=== PATIENT | female | born 1985 ===

== ENCOUNTER 2024-08-24 17:14 | Emergency (ER) | payer OTHER, SELFPAY ==
[2024-08-24 17:26] VITALS: BP 132/92
--- NOTE | 2024-08-24 19:50 | ED.SKININJ ---
HPI-Injury
General
Chief Complaint: Bite
Source: patient
Exam Limitations: none
Time Seen by Provider: 08/24/24 19:28
Nursing documentation reviewed up to this point in time: agreed with
History of Present Illness-Injury
Initial Injury comments:
This a pleasant 38-year-old female that presents after a dog bite. Earlier this evening she was hiking at [facility] and was bit by an unknown dog. She states that the dog came up to her just bit to her left forearm. She reports that
the dog was unknown to her. She met the owners but did not ask if the dog was vaccinated. She states that she did not get information about the dog or the owners. She is requesting tetanus and rabies shots. She denies any other symptoms.
Phy Exam
General Physical Exam
General Presentation: well appearing and no apparent distress
General Skin: warm and dry
General Habitus: normal
General Mental: alert
General Hydration: appears well hydrated
ENT Exam
ENT Exam: EOMI, pharynx normal, neck supple and normocephalic
Eye Exam
Eye Exam: PERRL, cornea clear and conjunctiva normal
Neurological Exam
Neurological Exam: alert, oriented x3, no motor deficits and speech normal
Musculoskeletal Exam
Musculoskeletal Exam: full ROM and no edema
Skin Exam
Skin Exam: normal color, warm/dry, no rash, no petechia and other (Small abrasion on the left forearm where patient states that she was bit by the canine.)
Psychiatric Exam
Psychiatric Exam: normal mood/affect
Course
Orders/Labs/Results
Orders:
Orders
08/24/24 19:34
Tetanus/Diphth/Acelpertussis [Adacel] 0.5 ml IM .ONCE ONE
08/24/24 20:00
Rabies Vaccine (Pcec)/Pf [Rabavert Rabies Vacc W-Diluent] 2.5 unit IM .ONCE ONE
08/24/24 20:15
Rabies Immune Globulin/Pf [HyperRAB] 1,264 unit IM ONCE ONE
Vital Signs
Initial and Last Documented VS:
Initial Vital Signs
Temp Pulse Resp BP Pulse Ox
97.7 F 101 16 132/92 100
08/24/24 17:26 08/24/24 17:26 08/24/24 17:26 08/24/24 17:26 08/24/24 17:26
Last Documented Vital Signs
Temp Pulse Resp BP Pulse Ox
97.7 F 101 16 132/92 100
08/24/24 17:26 08/24/24 17:26 08/24/24 17:26 08/24/24 17:26 08/24/24 17:26
*Critical Care Note
Total Time (30-74mins, 75-104mins- exclusive of procedures): Not Applicable
Update Note
Update Note:
Focused physical exam left arm shows a small abrasion consistent with a dog bite. There is no overt laceration. Patient is very insistent upon rabies treatment.
ED Attending Note
-
Portions of this chart may have been created with voice recognition software.� Occasional wrong word or��sound alike� substitutions may have occurred due to the inherent limitations of voice recognition software.
Discharge Plan
Departure
Patient Disposition: Home (Routine Discharge)
Date of Disposition: 08/24/24
Time of Disposition: 21:12
Patient with high blood pressure during this ER visit?: Yes
Condition: Good
Discharge Problem:
Dog bite, Encounter for prophylactic administration of rabies immune globulin
Instructions: Animal Bites (DC), Wound Care (DC), BLOOD PRESSURE, Rabies
Prescriptions:
New
RabAvert (PF) 2.5 unit suspension for reconstitution
1 ml IM ONCE Qty: 3 0RF
Rx Instructions:
Give 1 ml IM on 08/27, 08/31 and 09/07
Referrals:
Malu Waldron MD [Family Provider] -
Stand Alone Forms: Rabies Vaccine Post Exp Dosing
Activity Restrictions/Additional Instructions:
Please call the outpatient infusion center to schedule follow up appointments.
It was a pleasure meeting you and taking part in your care. We hope for your continued healing and wellness.
Please read discharge instructions in their entirety. However, they are for general education and may not describe your exact diagnosis at discharge. Information on your ER visit and medical conditions were discussed with you along with appropriate
follow up information...
If indicated, please take your medications as instructed and indicated on discharge paperwork.
Please schedule a follow up appointment as directed. Call to schedule an appointment
Please return to the emergency department with ANY change in, persisting, or worsening of symptoms. If any of your symptoms do not improve, or persist, or become more severe within 6-12 hours, please return to the emergency department for further
care.
Please return to the emergency department if you develop a headache, neck pain/stiffness, fever greater than 100.4F, chest pain, shortness of breath, persistent nausea, vomiting, slurred speech, difficulty walking, numbness/tingling, weakness, signs
of infection or any other symptoms that are worrisome to you.
If you have any questions or concerns please do not hesitate to call the Hospital at or E-mail me directly at [email or web address]
Interventions
Interventions:
*Risk Screen - Suicide Last Done: 08/24/24 17:26
*General Assessment Last Done: 08/24/24 17:26
*Neglect/Abuse Screening Last Done: 08/24/24 17:26
*Nursing Disposition Last Done: 08/24/24 21:40
ED-Skin Assessment Last Done: 08/24/24 19:18
Discharge Date and Time
Discharge Date/Time: 08/24/24 21:40
Print Language: DANISH
[2024-08-24] MEDS: HyperRAB 1264 UNIT IM (20:32)
[2024-08-24] MEDS: RABAVERT RABIES VACC W-DILUENT 2.5 UNIT IM (20:33)
[2024-08-24] MEDS: ADACEL 0.5 ML IM (20:35)
== END 2024-08-24 21:40 | disposition home or self-care (01) ==
LOC: EMR 17:14
PROVIDERS: EMERGENCY PHYSICIAN Student in an Organized Health Care Education/Training Program; FAMILY PHYSICIAN Family Medicine
DX: S50.812A Abrasion of left forearm, initial encounter (principal); W54.0XXA Bitten by dog, initial encounter; Y93.01 Activity, walking, marching and hiking; Y92.830 Public park as the place of occurrence of the external cause; Z20.3 Contact with and (suspected) exposure to rabies; Z29.14 Encounter for prophylactic rabies immune globulin; R03.0 Elevated blood-pressure reading, without diagnosis of hypertension
CPT/HCPCS: 99284; 90471; 96372; 90375; 90675; 90715

== ENCOUNTER 2024-08-27 15:09 | Outpatient (RCR) | payer OTHER, SELFPAY ==
[2024-08-27 15:15] VITALS: BP 145/74
[2024-08-27] MEDS: RABAVERT RABIES VACC W-DILUENT 2.5 UNIT IM (15:31)
== END 2024-08-28 09:40 | disposition home or self-care (01) ==
LOC: OID 15:09
PROVIDERS: ATTENDING PHYSICIAN Registered Nurse; FAMILY PHYSICIAN Family Medicine
DX: Z20.3 Contact with and (suspected) exposure to rabies (principal); Z23 Encounter for immunization
CPT/HCPCS: 90471; 90675

== ENCOUNTER 2024-09-06 15:15 | Outpatient (RCR) | payer OTHER, SELFPAY ==
[2024-08-30 15:24] VITALS: BP 139/75
[2024-08-30] MEDS: RABAVERT RABIES VACC W-DILUENT 2.5 UNIT IM (15:35)
[2024-09-06 15:21] VITALS: BP 130/69
[2024-09-06] MEDS: RABAVERT RABIES VACC W-DILUENT 2.5 UNIT IM (15:23)
== END 2024-09-09 10:08 | disposition home or self-care (01) ==
LOC: OID 15:15
PROVIDERS: ATTENDING PHYSICIAN Registered Nurse; FAMILY PHYSICIAN Family Medicine
DX: Z20.3 Contact with and (suspected) exposure to rabies (principal); Z23 Encounter for immunization
CPT/HCPCS: 90471; 90675

== ENCOUNTER 2025-01-03 06:28 | Day surgery (SDC) | payer OTHER, SELFPAY | END 2025-01-03 15:14 | disposition home or self-care (01) | LOC: GI 06:28 | PROVIDERS: ATTENDING PHYSICIAN Internal Medicine Gastroenterology; FAMILY PHYSICIAN Family Medicine | DX: K62.5 Hemorrhage of anus and rectum (principal); K64.8 Other hemorrhoids; K62.1 Rectal polyp; K63.9 Disease of intestine, unspecified | CPT/HCPCS: 45380; 88305 ==

== ENCOUNTER → 2025-03-04 09:01 | Outpatient (REF) | payer OTHER, SELFPAY | LOC: EMG 09:01 | PROVIDERS: ATTENDING PHYSICIAN Podiatrist; FAMILY PHYSICIAN Family Medicine | DX: G57.60 Lesion of plantar nerve, unspecified lower limb (principal); M79.673 Pain in unspecified foot; R20.0 Anesthesia of skin | CPT/HCPCS: 95886; 95911 ==

== ENCOUNTER → 2025-06-12 14:35 | Outpatient (REF) | payer OTHER, SELFPAY | LOC: PAVMRI 14:35 | PROVIDERS: ATTENDING PHYSICIAN Family Medicine | DX: M54.6 Pain in thoracic spine (principal); M54.50 Low back pain, unspecified; M41.34 Thoracogenic scoliosis, thoracic region; M41.9 Scoliosis, unspecified; G89.29 Other chronic pain | CPT/HCPCS: 72146; 72148 ==